=== PATIENT | male | born 1965 | race Caucasian/White ===

== ENCOUNTER 2018-11-16 16:09 | Emergency (ER) | payer BC, OTHER ==
[2018-11-16] MEDS ORDERED: Famotidine 20 MG/2 ML SDV IVPUSH ONE ×2 (16:13→21:26)
[2018-11-16] MEDS ORDERED: Dexamethasone 4 MG/ML SDV IVPUSH ONE (16:13)
[2018-11-16] MEDS ORDERED: diphenhydrAMINE 50 MG/ML SDV IVPUSH ONE ×2 (16:13→21:26)
[2018-11-16] MEDS ORDERED: EPINEPHrine 1 MG/ML SDV IM ONE ×2 (16:15→17:01)
[2018-11-16] MEDS ORDERED: Sodium Chloride 0.9% 10 ML Syringe FLUSH PRN (16:15)
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
[2018-11-16 16:41] VITALS: PULSE 85
[2018-11-16] MEDS ORDERED: Ketorolac 60 MG/2 ML SDV IVPUSH ONE (16:49)
[2018-11-16] MEDS ORDERED: Morphine 4 MG/ML Syringe IVPUSH ONE (17:41)
[2018-11-16 19:01] VITALS: BP 138/84
[2018-11-16] MEDS ORDERED: Ketorolac 30 MG/ML SDV IVPUSH ONE (21:36)
== END 2018-11-16 22:15 | disposition home or self-care (01) ==
LOC: JP.ED 16:09
DX: T63.441A Toxic effect of venom of bees, accidental (unintentional), initial encounter (principal); K14.9 Disease of tongue, unspecified; I10 Essential (primary) hypertension; Z79.899 Other long term (current) drug therapy
CPT/HCPCS: 96372; 96374; 96375; 96376; 99282; J0171; J1100; J1200; J1885; J3490

== ENCOUNTER 2025-01-14 22:09 | Day surgery (SDC) | payer BC ==
[2025-01-15 00:18] LABS: BASOPHILS ABSOLUTE AUTO 0.05 K/uL (0.00-0.10); BASOPHILS PERCENT AUTO 0.7 % (0.1-1.3); EOSINOPHILS ABSOLUTE AUTO 0.09 K/uL (0.00-0.40); EOSINOPHILS PERCENT AUTO 1.2 % (0.0-5.4); IMMATURE GRAN ABSOLUTE AUTO 0.07 K/uL (0.00-0.23); IMMATURE GRAN PERCENT AUTO 1.0 % (0.0-0.7); LYMPHOCYTES ABSOLUTE AUTO 2.02 K/uL (0.8-3.3); LYMPHOCYTES PERCENT AUTO 27.8 % (11.4-47.7); MONOCYTES ABSOLUTE AUTO 0.52 K/uL (0.20-0.90); MONOCYTES PERCENT AUTO 7.2 % (3.3-12.6); NEUTROPHILS ABSOLUTE AUTO 4.51 K/uL (1.0-7.6); NEUTROPHILS PERCENT AUTO 62.1 % (40.0-78.1); PLATELET COUNT,PLT 229 K/uL (130-375); RED BLOOD CELL COUNT 4.80 M/uL (4.14-5.76); WHITE BLOOD CELL COUNT,WBC 7.3 K/uL (3.2-11.0)
[2025-01-15 00:27] LABS: A/G RATIO 1.1 (1.2-2.2); ALANINE AMINOTRANSFERASE,ALT 36 U/L (12-78); ASPARTATE AMNIOTRANSFERASE,AST 22 U/L (15-37); BILIRUBIN TOTAL 0.4 mg/dL (0.2-1.0); BLOOD UREA NITROGEN,BUN 12 mg/dL (7-18); CARBON DIOXIDE,CO2 28 mmol/L (21-32); CHLORIDE,CL 99 mmol/L (100-108); CREATININE 1.3 mg/dL (0.8-1.3); EST CRCL DRUG DOSING (CG) 66.98 mL/min; ESTIMATED GFR 64 mL/min (>60); GLUCOSE RANDOM 149 mg/dL (74-106); POTASSIUM,K 4.0 mmol/L (3.6-5.2); PROTEIN TOTAL,TP 7.5 g/dL (6.4-8.2); SODIUM,NA 135 mmol/L (140-148)
[2025-01-15 00:29] LABS: INR 1.0
[2025-01-15] MEDS ORDERED: fentaNYL 100 MCG/2 ML SDV ONE (00:37)
[2025-01-15] MEDS ORDERED: Midazolam 1 MG/ML 2 ML SDV ONE (00:37)
[2025-01-15] MEDS ORDERED: Propofol 200 MG/20 ML SDV ONE (00:37)
[2025-01-15 01:32] VITALS: BP 132/91; PULSE 92
== END 2025-01-15 02:08 | disposition home or self-care (01) ==
LOC: JP.ED 22:09 → JP.SDS 01-15 00:47 → JP.ED 01-15 02:08 → JP.SDS 01-15 02:08
PROVIDERS: ATTEND Surgery
DX: T18.128A Food in esophagus causing other injury, initial encounter (principal); K20.90 Esophagitis, unspecified without bleeding; I10 Essential (primary) hypertension; Z79.899 Other long term (current) drug therapy
CPT/HCPCS: 36415; 43247; 80053; 85025; 85610; 96372; 96374; 99283; J1610; J2250; J2470; J2704; J3010; 00731-QZ